=== PATIENT | female | born 1950 ===

== ENCOUNTER → 2019-01-29 | Outpatient (CLI) | payer OTHER | END | disposition home or self-care (01) | LOC: SONOGRAMA 08:10 | DX: E04.2 Nontoxic multinodular goiter (principal) ==

== ENCOUNTER 2020-08-22 09:18 | Outpatient (CLI) | payer OTHER | END 2020-08-22 09:56 | disposition home or self-care (01) | LOC: SONOGRAMA 09:18 | PROVIDERS: ATTEND Pathology Anatomic Pathology & Clinical Pathology | DX: D34 Benign neoplasm of thyroid gland (principal); E06.5 Other chronic thyroiditis; E04.2 Nontoxic multinodular goiter ==